=== PATIENT | female | born 1950 | race Caucasian/White ===

== ENCOUNTER → 2016-03-31 12:54 | Outpatient (CLI) | payer BC ==
[2015-11-04 07:09] VITALS: BMI 39.5
[~2016-03-31 12:54] MED LIST: ACCOLATE10 MG PO; ADVAIR 500/501 DISK INH; ALENDRONATE SOD70 MG PO; BUMEX2 MG PO; CALCIUM 500 +1 EAC3 PO; CALCIUM 600+D T1 TA1 PO; CARDIZEM60 MG PO; CEFTIN500 MG PO; COZAAR25 MG PO; DULCOLAX STOOL100 MG PO; ELIQUIS5 MG PO; FOLIC ACID1 MG PO; FUROSEMIDE40 MG PO; HEMOCYTE PLUS C1 CAP PO; HYDROCODON-ACE1 EAC7 PO; IPRAT-ALBUT 0.5-3 ML UPD; K-TAB10 MEQ PO; LIPITOR10 MG PO; OMEPRAZOLE20 M1 PO; PREDNISONE20 MG PO; SPIRIVA18 MCG INH; ULTRAM50 MG PO; VENTOLIN HFA18 GM INH; ZYRTEC10 MG PO
== END | disposition home or self-care (01) ==
LOC: D.RT 02-15 11:00 → D.RAD 02-15 13:00 → D.RT 02-17 14:00 → D.RAD 02-17 15:00 → D.RT 02-22 13:00 → D.RAD 02-22 14:00 → D.RT 12:54
DX: J44.9 Chronic obstructive pulmonary disease, unspecified (principal)

== ENCOUNTER → 2016-04-01 13:41 | Outpatient (CLI) | payer BC ==
[2015-11-04 07:09] VITALS: BMI 39.5
[2016-04-01 14:22] LABS: CREATININE - SERUM 0.8 mg/dL (0.6-1.3)
== END | disposition home or self-care (01) ==
LOC: D.CT 13:41
PROVIDERS: Internal Medicine Pulmonary Disease
DX: R91.8 Other nonspecific abnormal finding of lung field (principal)

== ENCOUNTER 2016-07-19 08:19 | Outpatient (CLI) | payer BC ==
[~2016-07-19] VITALS: Ht 162.6 cm; Wt 100.0 kg
[2016-07-19 08:58] VITALS: BP 129/87; Ht 162.6 cm; Wt 100.0 kg
[2016-07-19 09:11] LABS: BASOPHILS 0.8 % (0-2); EOSINOPHILS 0.8 % (0-7); HEMATOCRIT 36.1 % (36.0-48.0); HEMOGLOBIN 12.1 g/dL (12-16); IMMATURE GRANULOCYTES 0.8 % (0-5); LYMPHOCYTES 31.4 % (15-50); MCH 31.3 pg (26.0-34.0); MCHC 33.5 g/dL (31.0-37.0); MCV 93.3 fL (80.0-100.0); MEAN PLATELET VOLUME 9.7 fL (7.4-10.4); MONOCYTES 6.3 % (2-11); NEUTROPHILS 59.9 % (40-80); RBC 3.87 10x6/uL (4.00-5.40); RDW 14.8 % (11.5-14.5)
[2016-07-19 09:17] LABS: PLATELET COUNT 222 10x3/uL (130-400)
--- NOTE | 2016-07-19 09:20 | NUR ---
20 GUAGE IV STARTED IN LEFT HAND X 1 STICK.
[2016-07-19 09:32] LABS: INR 0.97 (0.85-1.17); PROTIME 12.7 SECONDS (11.6-15.0)
--- NOTE | 2016-07-19 14:01 | NUR ---
1230 DR CANTU IN ROOM SPOKE WITH DR PEPE QUIGLEY TO FEED AND DC AFTER 1300 1315 IV DC WITH CATHER TIP INTACT, TOLERATED DIET
[2016-07-20 13:21] LABS: FUNGUS STAIN Final report (())
[2016-07-20 17:13] LABS: ACID FAST SMEAR Negative (()); AFB SPECIMEN PROCESSING Concentration (())
[2016-07-22 03:10] LABS: HSV CULTURE NO TYPING Negative (())
== END 2016-07-19 13:40 | disposition home or self-care (01) ==
LOC: D.OPS 08:19
PROVIDERS: Internal Medicine Pulmonary Disease
DX: T17.890A Other foreign object in other parts of respiratory tract causing asphyxiation, initial encounter (principal); T17.590A Other foreign object in bronchus causing asphyxiation, initial encounter; J18.9 Pneumonia, unspecified organism; E66.9 Obesity, unspecified; K21.9 Gastro-esophageal reflux disease without esophagitis; J44.9 Chronic obstructive pulmonary disease, unspecified; C34.90 Malignant neoplasm of unspecified part of unspecified bronchus or lung; C79.51 Secondary malignant neoplasm of bone; C79.31 Secondary malignant neoplasm of brain; Z87.891 Personal history of nicotine dependence; Z86.718 Personal history of other venous thrombosis and embolism; Z79.01 Long term (current) use of anticoagulants; J30.9 Allergic rhinitis, unspecified; E78.5 Hyperlipidemia, unspecified; I10 Essential (primary) hypertension; M81.0 Age-related osteoporosis without current pathological fracture; D64.9 Anemia, unspecified; Z79.899 Other long term (current) drug therapy

== ENCOUNTER → 2016-09-15 09:26 | Outpatient (CLI) | payer BC ==
[2016-07-19 08:58] VITALS: BMI 37.8
== END | disposition home or self-care (01) ==
LOC: D.RAD 09:26
DX: J18.9 Pneumonia, unspecified organism (principal)